=== PATIENT | female | born 1960 | race Caucasian/White ===

== ENCOUNTER → 2016-09-24 | Outpatient (CLI) | payer BC ==
[2016-09-24 08:31] LABS: CH 32.5; CHCM 35.5; HCT 39.2 % (34.0-46.0); HDW 3.23; HGB 13.9 gm/dL (11.4-16.0); MCH 32.5 pg (25.0-35.0); MCHC 35.4 g/dL (31.0-37.0); MCV 91.9 fL (80.0-100.0); Mean Platelet Volume 7.9; RBC 4.27 m/uL (3.80-5.40); RDW 13.6 % (11.5-15.5)
[2016-09-24 08:52] LABS: ALT 71 U/L (9-52); AST 53 U/L (14-36); Alkaline Phosphatase 88 U/L (38-126); Anion Gap 12 mmol/L; Blood Urea Nitrogen 16 mg/dL (7-17); Calcium 10.2 mg/dL (8.4-10.2); Carbon Dioxide 29 mmol/L (22-30); Chloride 103 mmol/L (98-107); Cholesterol 180 mg/dL (<200); Glucose 114 mg/dL (74-99); HDL Cholesterol 51 mg/dL (40-60); Non-African American GFR(MDRD) >60 (>60 ml/min/1.73 sqM); Potassium 4.3 mmol/L (3.5-5.1); Sodium 144 mmol/L (137-145); Total Bilirubin 1.2 mg/dL (0.2-1.3); Total Protein 7.8 g/dL (6.3-8.2); Triglycerides 283 mg/dL (<150)
== END ==
LOC: LABWHC1 08:01
PROVIDERS: ATTEND Internal Medicine
DX: E03.9 Hypothyroidism, unspecified (principal); E78.5 Hyperlipidemia, unspecified; I10 Essential (primary) hypertension
CPT/HCPCS: 36415; 80053; 80061; 83036; 84443; 85027

== ENCOUNTER → 2016-10-17 | Outpatient (CLI) | payer BC ==
--- NOTE | 2016-10-17 09:01 | US ---
EXAMINATION TYPE: US abdomen limited DATE OF EXAM: 10/17/2016 7:24 AM COMPARISON: Previous study dated 02/24/2012. CLINICAL HISTORY: K76.0 FATTY LIVER. Hx of fatty liver. No pain. Follow up. EXAM MEASUREMENTS: Liver Length: 15.8 cm Gallbladder Wall: 0.2 cm CHD: 0.2 cm Right Kidney: 10.5 x 5.5 x 5.6 cm Pancreas: echogenic Liver: slightly echogenic with hypoechoic lesion seen adjacent to GB = 2.1 x 1.0 cm Gallbladder: wnl Evidence for sonographic Rivera's sign: neg CHD: wnl Right Kidney: wnl Visualized portions of the pancreas are normal. The liver is normal in size but echogenic. There is some focal fatty sparing near the gallbladder. The gallbladder is unremarkable. The gallbladder wall measures 2 mm. The distal common hepatic duct m easures 2 mm. Right kidney is unremarkable. IMPRESSION: FATTY INFILTRATION OF THE LIVER WITH SOME FOCAL FATTY SPARING.
== END | disposition home or self-care (01) ==
LOC: LABWHC1 06:57
PROVIDERS: ATTEND Internal Medicine
DX: K76.0 Fatty (change of) liver, not elsewhere classified (principal)
CPT/HCPCS: 76705

== ENCOUNTER → 2017-12-06 | Outpatient (CLI) | payer BC ==
[2017-12-06 08:04] LABS: HCT 39.7 % (34.0-46.0); HGB 14.3 gm/dL (11.4-16.0); MCH 31.5 pg (25.0-35.0); MCHC 35.9 g/dL (31.0-37.0); MCV 87.8 fL (80.0-100.0); Mean Platelet Volume 6.8; Platelet Count 223 k/uL (150-450); RBC 4.52 m/uL (3.80-5.40); RDW 13.5 % (11.5-15.5); WBC 4.5 k/uL (3.8-10.6)
[2017-12-06 08:21] LABS: ALT 58 U/L (9-52); AST 49 U/L (14-36); Albumin 4.6 g/dL (3.5-5.0); Alkaline Phosphatase 94 U/L (38-126); Anion Gap 14 mmol/L; Blood Urea Nitrogen 16 mg/dL (7-17); Calcium 9.9 mg/dL (8.4-10.2); Carbon Dioxide 26 mmol/L (22-30); Chloride 103 mmol/L (98-107); Cholesterol 172 mg/dL (<200); Glucose 100 mg/dL (74-99); HDL Cholesterol 41 mg/dL (40-60); LDL Cholesterol,Calculated 68 mg/dL (0-99); Sodium 143 mmol/L (137-145); Total Bilirubin 1.1 mg/dL (0.2-1.3); Total Protein 7.3 g/dL (6.3-8.2); Triglycerides 317 mg/dL (<150)
[2017-12-06 08:28] LABS: Appearance,Urine Cloudy (Clear); Bacteria,Urine Rare /hpf; Bilirubin,Urine Negative (Negative); Blood,Urine Trace (Negative); Color,Urine Yellow; Glucose,Urine (UA) Negative (Negative); Ketones,Urine Negative (Negative); Leukocyte Esterase,Urine Large (Negative); Mucus,Urine Moderate /hpf; Nitrite,Urine Negative (Negative); PH, Urine 5.5 (5.0-8.0); Protein,Urine Trace (Negative); RBC,Urine 6 /hpf (0-5); Specific Gravity,Urine 1.024 (1.001-1.035); Squamous Epithelial Cell,Urine 15 /hpf (0-4); Urobilinogen,Urine <2.0 mg/dL (<2.0); WBC,Urine 14 /hpf (0-5)
== END | disposition home or self-care (01) ==
LOC: LABWHC1 07:28
PROVIDERS: ATTEND Internal Medicine
DX: E78.5 Hyperlipidemia, unspecified (principal); M19.90 Unspecified osteoarthritis, unspecified site; R03.0 Elevated blood-pressure reading, without diagnosis of hypertension
CPT/HCPCS: 36415; 80053; 80061; 81001; 85027

== ENCOUNTER → 2018-05-11 | Outpatient (CLI) | payer BC ==
--- NOTE | 2018-05-11 15:31 | CT ---
EXAMINATION TYPE: CT abdomen w con DATE OF EXAM: 05/11/2018 COMPARISON: Ultrasound abdomen 10/17/2016 INDICATION: Patient complains of RUQ pain. DLP: 723.3 mGycm, Automated exposure control for dose reduction was used. CONTRAST: 100 mL of Isovue 300. Study performed with Oral Contrast TECHNIQUE: Axial images were obtained from above the diaphragm to the pubic rami in the axial plane a t 5 mm thick sections. Reconstructed images are reviewed on the computer in the coronal plane. FINDINGS: Limited CT sections are obtained the lung bases. The lung bases are clear. CT ABDOMEN: Small hiatal hernia is present Liver: There is a 1.0 cm hypodensity within the upper right lobe liver measuring -2 Hounsfield units compatible small cyst. Additional hypodensities are scattered within the right lobe liver likely repr esenting additional cysts. The largest measures 1.8 cm and 8 Hounsfield units. Additional cysts measu ring 9 Hounsfield units. One cyst too small to classify measures 21 Hounsfield units and 0.7 cm. Seri es 3 image 18. Other etiologies should be considered. Spleen: Normal Pancreas: Normal Adrenal glands: The adrenal glands are normal. Gallbladder: Normal Kidneys: No masses are evident. No hydronephrosis is present. No cysts are present. Delayed images were obtained through the kidneys, which remain unremarkable. Aorta: Vascular calcification is within the aorta. Inferior vena cava: Normal. IMPRESSIONS: 1. Probable hepatic cysts. These are not well-visualized on the ultrasound. Monitoring is recommende d with CT
== END ==
LOC: RADCTMAIN 10:54
PROVIDERS: ATTEND Family Medicine
DX: R10.11 Right upper quadrant pain (principal)
CPT/HCPCS: 74160; Q9967

== ENCOUNTER → 2018-07-18 | Outpatient (CLI) | payer BC ==
--- NOTE | 2018-07-18 10:16 | NM ---
EXAMINATION TYPE: NM hepatobiliary w EF DATE OF EXAM: 07/18/2018 COMPARISON: Correlation CT 05/11/2018 HISTORY: 57 year-old female right upper quadrant pain TECHNIQUE: After the intravenous administration of 5.2 mCi Tc 99m Mebrofenin hepatobiliary scintigrap hy is performed. Immediate images post injection. FINDINGS: There is satisfactory initial accumulation of tracer by the liver. The gallbladder is visualized wit hin 10 minutes. The small bowel activity is noted only after oral Ensure administration. At one hour 8 ounces of oral ensure plus is given to mimic CCK and gallbladder ejection fraction is calculated a t 72 %, in the upper normal range. Therefore there is no scintigraphic evidence of cystic or common bile duct obstruction to suggest acute cholecystitis or gallbladder dyskinesia. IMPRESSION: No scintigraphic evidence for acute/chronic cholecystitis or biliary dyskinesia.
== END | disposition home or self-care (01) ==
LOC: RADNMMAIN 06:55
PROVIDERS: ATTEND Surgery
DX: R10.11 Right upper quadrant pain (principal)
CPT/HCPCS: 78226; A9537

== ENCOUNTER → 2022-06-03 | Outpatient (CLI) | payer BC ==
--- NOTE | 2022-06-06 08:37 | MM ---
Reason for Exam: Screening (asymptomatic). Last mammogram was performed 4 year(s) and 0 month(s) ago. Patient History: Menarche at age 15. First Full-Term at age 27. Postmenopausal. Patient used Hormonal Contraceptives for 15 years. Benign Excisional Biopsy. Risk Values: Heidy 5 year model risk: 1.8%. NCI Lifetime model risk: 9.8%. Prior Study Comparison: 03/11/1997 Right Special View Mammogram, [facility]. 03/21/1997 Right Diagnostic Ultrasound, [facility]. 05/29/2018 Bilateral Screening Mammogram, [facility]. Tissue Density: The breast tissue is heterogeneously dense. This may lower the sensitivity of mammography. Findings: Analyzed By CAD. There is no suspicious group of microcalcifications. There is a partially obscured mass inner upper left breast approximately 6 cm from the nipple. Additional views are recommended. Overall Assessment: Incomplete: need additional imaging evaluation, BI-RAD 0 Management: Diagnostic Mammogram of the left breast. A clinical breast exam by your physician is recommended on an annual basis and results should be correlated with mammographic findings. Electronically signed and approved by: Andrew Fritz M.D. Radiologis
== END | disposition home or self-care (01) ==
LOC: RADMAMWWP 16:42
PROVIDERS: ATTEND Family Medicine
DX: Z12.31 Encounter for screening mammogram for malignant neoplasm of breast (principal); Z78.0 Asymptomatic menopausal state
CPT/HCPCS: 77067

== ENCOUNTER → 2022-06-15 | Outpatient (CLI) | payer BC ==
--- NOTE | 2022-06-16 12:59 | MM ---
Reason for Exam: Additional evaluation requested from abnormal screening. Last screening mammogram was performed less than 1 month ago. Patient History: Menarche at age 15. First Full-Term at age 27. Postmenopausal. Patient used Hormonal Contraceptives for 15 years. Benign Excisional Biopsy. Risk Values: Heidy 5 year model risk: 1.8%. NCI Lifetime model risk: 9.8%. Prior Study Comparison: 03/11/1997 Right Special View Mammogram, [facility]. 05/29/2018 Bilateral Screening Mammogram, [facility]. 06/03/2022 Bilateral MG screening mammo w CAD, [facility]. Tissue Density: Left: The breast tissue is heterogeneously dense. This may lower the sensitivity of mammography. Findings: Analyzed By CAD. There is a 1cm nodule at the approximate 9 o'clock position left breast 6cm from the nipple. Ultrasound is recommended. Overall Assessment: Incomplete: need additional imaging evaluation, BI-RAD 0 Management: Diagnostic Breast Ultrasound of the left breast. A clinical breast exam by your physician is recommended on an annual basis and results should be correlated with mammographic findings. This exam should not preclude additional follow-up of suspicious palpable abnormalities. Results were given to the patient verbally at the time of exam. Electronically signed and approved by: Andrew Fritz M.D. Radiologis
--- NOTE | 2022-06-16 14:08 | USB ---
Reason for Exam: Additional evaluation requested from abnormal screening. Patient History: Menarche at age 15. First Full-Term at age 27. Postmenopausal. Patient used Hormonal Contraceptives for 15 years. Benign Excisional Biopsy. Risk Values: Heidy 5 year model risk: 1.8%. NCI Lifetime model risk: 9.8%. Technique: Method: Targeted. Prior Study Comparison: 03/11/1997 Right Special View Mammogram, [facility]. 05/29/2018 Bilateral Screening Mammogram, [facility]. 06/03/2022 Bilateral MG screening mammo w CAD, [facility]. Findings: The upper outer quadrant of the left breast, the axilla of the left breast and the retroareolar of the left breast were scanned. Solid appearing mass at the left 1:00 position 6 cm from the nipple measuring 1.0 x 0.4 x 0.6 cm. Ultrasound-guided core biopsy is recommended.. Overall Assessment: Suspicious, BI-RAD 4 Management: Ultrasound Core Biopsy of the left breast. A clinical breast exam by your physician is recommended on an annual basis and results should be correlated with mammographic findings. This exam should not preclude additional follow-up of suspicious palpable abnormalities. Results were given to the patient verbally at the time of exam. Electronically signed and approved by: Andrew Fritz M.D. Radiologis
== END | disposition home or self-care (01) ==
LOC: RADMAMWWP 14:52
PROVIDERS: ATTEND Family Medicine
DX: R92.8 Other abnormal and inconclusive findings on diagnostic imaging of breast (principal); Z78.0 Asymptomatic menopausal state; Z98.890 Other specified postprocedural states
CPT/HCPCS: 77065

== ENCOUNTER → 2022-06-21 | Day surgery (SDC) | payer BC ==
--- NOTE | 2022-06-27 08:36 | MM ---
Reason for Exam: Post Procedure Mammogram. Last screening mammogram was performed less than 1 month ago. Patient History: Menarche at age 15. First Full-Term at age 27. Postmenopausal. Patient used Hormonal Contraceptives for 15 years. Benign Excisional Biopsy. Risk Values: Heidy 5 year model risk: 1.8%. NCI Lifetime model risk: 9.8%. Prior Study Comparison: 03/11/1997 Right Special View Mammogram, [facility]. 03/21/1997 Right Diagnostic Ultrasound, [facility]. 05/29/2018 Bilateral Screening Mammogram, [facility]. 06/03/2022 Bilateral MG screening mammo w CAD, [facility]. 06/15/2022 Left US breast workup limited LT, [facility]. 06/15/2022 Left MG work up mamm w CAD LT, [facility]. Tissue Density: Left: The breast tissue is heterogeneously dense. This may lower the sensitivity of mammography. Pathology Description: Location: 9 o'clock. Marker Left Behind. Needle Type: Mammotome Gauge: 13 The procedure of ultrasound guided core biopsy was explained to the patient. Benefits, alternatives, and risks were discussed. An informed consent was then obtained. The patient was placed in supine positioning for imaging and for the procedure. The overlying skin was prepped and draped in usual sterile fashion. Lidocaine with epinephrine was used as anesthetic into the skin and subcutaneous tissue up to area of concern in the left breast. Under ultrasound guidance, a 12-gauge vacuum assisted biopsy gun device was used to obtain 6 core samples. Following this, a biopsy clip was left in lesion. The patient tolerated the procedure well without any immediate complication. The patient was kept in the radiology department for short stay after the procedure and then discharged home in stable condition. Postprocedure mammogram: The patient was transferred to mammography for physician ordered post procedure mammogram for clip placement verification. Postprocedure mammogram demonstrates the biopsy clip to have migrated 1 cm medially. Impression: Successful, uncomplicated ultrasound guided core biopsy of area of concern in the left breast, full pathology results to follow. Pathology Results: Result: Benign, Fibrocystic change. LEFT BREAST, ULTRASOUND GUIDED CORE BIOPSY: Current specimen having benign breast tissue with fibrosis and fibrocystic change with columnar cell change and apocrine metaplasia (see note). Rare disassociated microcalcification appreciated. Overall Assessment: Benign Assessment: MG diagnostic mammo LT wo CAD. - Left: Benign, BI-RAD 2. Management: Diagnostic Breast Ultrasound of the left breast in 6 months. Electronically signed and approved by: Mirza Boyd D.O.
== END ==
LOC: RADUSWWP 12:52
PROVIDERS: ATTEND Surgery
DX: N60.12 Diffuse cystic mastopathy of left breast (principal); N60.82 Other benign mammary dysplasias of left breast
CPT/HCPCS: 88305; 77065; 19083; A4648

== ENCOUNTER → 2022-12-21 | Outpatient (CLI) | payer BC ==
--- NOTE | 2022-12-21 15:23 | USB ---
Reason for Exam: Follow-up at short interval from prior study. Patient History: Menarche at age 15. First Full-Term at age 27. Postmenopausal. Patient used Hormonal Contraceptives for 15 years. 06/21/2022, Benign US biopsy breast VAD LT on the left side. Benign Excisional Biopsy. Risk Values: Heidy 5 year model risk: 2.4%. NCI Lifetime model risk: 11.9%. Technique: Method: Targeted. Prior Study Comparison: 06/03/2022 Bilateral MG screening mammo w CAD, [facility]. 06/15/2022 Left MG work up mamm w CAD LT, [facility]. 06/21/2022 Left MG diagnostic mammo LT wo CAD., [facility]. Findings: The upper inner quadrant of the left breast, the axilla of the left breast and the retroareolar of the left breast were scanned. Targeted ultrasound of the left breast at site of previous biopsy was performed from 9-12 o'clock with additional evaluation of nipple and axilla. Redemonstration of hypoechoic irregular mass without posterior acoustic features or internal vascularity in the left breast at 9:00 6 cm from the nipple measuring 0.6 x 0.4 x 1.0 cm. The biopsy clip is adjacent to the lesion with small surrounding seroma. Overall Assessment: Benign, BI-RAD 2 Management: Screening Mammogram of both breasts in 6 months. A clinical breast exam by your physician is recommended on an annual basis and results should be correlated with mammographic findings. This exam should not preclude additional follow-up of suspicious palpable abnormalities. Results were given to the patient verbally at the time of exam. Electronically signed and approved by: Mirza Boyd D.O.
== END | disposition home or self-care (01) ==
LOC: RADUSWWP 14:50
PROVIDERS: ATTEND Surgery
DX: R92.8 Other abnormal and inconclusive findings on diagnostic imaging of breast (principal); Z78.0 Asymptomatic menopausal state

== ENCOUNTER → 2024-04-03 | Outpatient (CLI) | payer BC ==
[2024-04-03 15:37] LABS: ALT 110 U/L (8-44); AST 78 U/L (13-35); Albumin 4.9 g/dL (3.8-4.9); Albumin/Globulin Ratio 1.96 Ratio (1.60-3.17); Alkaline Phosphatase 116 U/L (41-126); BUN/Creat Ratio 17.71 Ratio (12.00-20.00); Blood Urea Nitrogen 12.4 mg/dL (9.0-27.0); Calcium 10.3 mg/dL (8.7-10.3); Carbon Dioxide 26.1 mmol/L (21.6-31.8); Chloride 103 mmol/L (96-109); Chol/HDL Ratio 4.36 Ratio; Globulin 2.5 g/dL (1.6-3.3); Glucose 108 mg/dL (70-110); LDL Cholesterol,Calculated 109.1 mg/dL (0.0-131.0); Potassium 4.4 mmol/L (3.5-5.5); Sodium 141 mmol/L (135-145); T4, Free (Free Thyroxine) 1.09 ng/dL (0.80-1.80); Total Bilirubin 0.9 mg/dL (0.3-1.2); Total Protein 7.4 g/dL (6.2-8.2)
[2024-04-03 15:41] LABS: Basophils # (A) 0.06 X 10*3/uL (0.00-0.10); Basophils % (A) 1.2 %; Eosinophils # (A) 0.19 X 10*3/uL (0.04-0.35); Eosinophils % (A) 3.7 %; HCT 45.3 % (37.2-46.3); HGB 15.5 g/dL (12.0-15.0); Lymphocytes # (A) 1.45 X 10*3/uL (0.90-5.00); Lymphocytes % (A) 28.3 %; MCH 32.4 pg (27.0-32.0); MCHC 34.2 g/dL (32.0-37.0); MCV 94.6 FL (80.0-97.0); Mean Platelet Volume 10.6 FL (9.5-12.2); Monocytes # (A) 0.57 X 10*3/uL (0.20-1.00); Monocytes % (A) 11.1 %; NRBC Per 100 WBC 0 X 10*3/uL (0.00-0.01); Neutrophils # (A) 2.83 X 10*3/uL (1.80-7.70); Neutrophils % (A) 55.1 %; Platelet Count 238 X 10*3/uL (140-440); RBC 4.79 X 10*6/uL (4.10-5.20); RDW 12.4 % (11.5-14.5); WBC 5.13 X 10*3/uL (4.50-10.00)
== END | disposition home or self-care (01) ==
LOC: LABWHC1 08:30
PROVIDERS: ATTEND Family Medicine
DX: Z00.00 Encounter for general adult medical examination without abnormal findings (principal); Z13.220 Encounter for screening for lipoid disorders
CPT/HCPCS: 36415; 80053; 80061; 84439; 84443; 85025